=== PATIENT | male | born 1960 | race Caucasian/White ===

== ENCOUNTER → 2019-09-09 13:46 | Outpatient (CLI) | payer MEDICAID ==
[2019-09-09 14:46] LABS: HEMATOCRIT 36.1 % (42.0-54.0); HEMOGLOBIN 12.6 g/dL (13.5-17.5); MCH 35.5 pg (26.0-34.0); MCHC 34.9 g/dL (31.0-37.0); MCV 101.7 fL (80.0-100.0); PLATELET COUNT 297 10x3/uL (130-400); RBC 3.55 10x6/uL (4.20-6.10); WBC 8.1 10x3/uL (4.8-10.8)
[2019-09-09 15:14] LABS: EOSINOPHILS 2 % (0-7); LYMPHOCYTES 27 % (15-50); MONOCYTES 2 % (2-11); NEUTROPHILS 68 % (40-80); PLATELET ESTIMATE NORMAL
== END | disposition home or self-care (01) ==
LOC: D.LAB 13:45 → D.RT 14:30
PROVIDERS: ATTEND Internal Medicine Pulmonary Disease
DX: J45.909 Unspecified asthma, uncomplicated (principal); J40 Bronchitis, not specified as acute or chronic